=== PATIENT | female | born 1990 | race Hispanic/Latino ===

== ENCOUNTER 2017-11-13 13:25 | Emergency (ER) | payer OTHER ==
[2017-11-13] MEDS ORDERED: Sodium Chloride 0.9% 1,000 ML IV STA (14:02)
[2017-11-13 14:17] LABS: BASO # 0.1 K/uL (0.0-0.2); BASO % 1.2 % (0.0-2.0); EOS # 0.1 K/uL (0.0-0.7); EOS % 1.6 % (0.0-4.0); HEMOGLOBIN 14.2 g/dL (12.0-16.0); LYMPH # 2.2 K/uL (1.0-4.3); LYMPH % 23.5 % (20.0-40.0); MEAN CELL VOLUME 92.7 fl (81.0-99.0); MEAN CORPUSCULAR HEMOGLOBIN 31.8 pg (27.0-31.0); MEAN CORPUSCULAR HGB CONC 34.3 g/dL (33.0-37.0); MONO # 0.5 K/uL (0.0-0.8); MONO % 5.8 % (0.0-10.0); NEUT # 6.3 K/uL (1.8-7.0); NEUT % 67.9 % (50.0-75.0); NRBC % 0.1 % (0.0-0.0); RBC 4.47 Mil/uL (3.80-5.20); RED CELL DISTRIBUTION WIDTH 12.4 % (11.5-14.5); WHITE BLOOD COUNT 9.3 K/uL (4.8-10.8)
--- NOTE | 2017-11-13 14:17 | ED PDOC ---
HPI: Abdomen Time Seen by Provider: 11/13/17 13:43 Chief Complaint (Nursing): Abdominal Pain Chief Complaint (Provider): Abdominal Pain History Per: Patient History/Exam Limitations: no limitations Onset/Duration Of Symptoms: Days (x5) Current Symptoms Are (Timing): Still Present Additional Complaint(s): 27 y/o female presents to the ED complaining of right sided pelvic pain that has been progressively worsening since Wednesday. Patient states pain is associated with vaginal spotting starting 2-3 days before onset of pain. Patient reports that last month she had an IUD placed by Dr. Murray. Denies fever, nausea, vomiting, diarrhea, dysuria, previous abdominal surgery and previous gynecological surgery. PMD: Non [facility] Provider Past Medical History Reviewed: Historical Data, Nursing Documentation, Vital Signs Vital Signs: Last Vital Signs Temp 97 F L 11/13/17 17:51 Pulse 78 11/13/17 17:51 Resp 19 11/13/17 17:51 BP 128/76 11/13/17 17:51 Pulse Ox 98 11/13/17 17:51 - Medical History PMH: No Chronic Diseases - Surgical History Surgical History: Tonsillectomy - Family History Family History: States: Unknown Family Hx - Allergies Allergies/Adverse Reactions: Allergies Allergy/AdvReac Type Severity Reaction Status Date / Time No Known Allergies Allergy Verified 11/13/17 13:37 Review of Systems ROS Statement: Except As Marked, All Systems Reviewed And Found Negative Constitutional: Negative for: Fever Gastrointestinal: Negative for: Nausea, Vomiting, Diarrhea Genitourinary Female: Positive for: Vaginal Bleeding, Pelvic Pain. Negative for : Dysuria Physical Exam - Reviewed Nursing Documentation Reviewed: Yes Vital Signs Reviewed: Yes - Physical Exam Appears: Positive for: No Acute Distress Cardiovascular/Chest: Positive for: Regular Rate, Rhythm. Negative for: Murmur Respiratory: Positive for: Normal Breath Sounds. Negative for: Respiratory Distress Gastrointestinal/Abdominal: Positive for: Normal Exam, Soft. Negative for: Tenderness Pelvic Exam: Positive for: External Exam Normal Neurologic/Psych: Positive for: Alert, Oriented (x3). Negative for: Motor/ Sensory Deficits - Laboratory Results Result Diagrams: 11/13/17 14:11 11/13/17 14:11 Urine POC: Negative - ECG O2 Sat by Pulse Oximetry: 100 (RA) Pulse Ox Interpretation: Normal Medical Decision Making Medical Decision Making: Time: 1411 Plan: -- Type and Screen -- CMP -- NPO Diet -- ED Urine -- CBC with differentials -- Sodium Chloride IV 200 mls/hr -- Toradol 30 mg IVP -- IV Insertion -- Urinalysis -- Transvaginal US 1530 On re-evaluation, pt. informed of lab results. Reports good relief of pain. 1600 TVUS: Complex cyst in the left adnexal region with mild free fluid. Questionable position of IUD may be low in position in the lower uterine segment. Case d/w Dr. Velásquez, OBGYN [employer], and states pt. must be informed that she can get with a malposition IUD and that she will have to f/u with her OBGYN for removal. Also states pt. does not require face to face evaluation by him at this time. Pt. informed of plan and agrees with care. Requesting referral for new OBGYN. __ Scribe Attestation: Documented by Joce Caraballo, acting as a scribe for Fernando Sher PA-C. Provider Scribe Attestation: All medical record entries made by the Scribe were at my direction and personally dictated by me. I have reviewed the chart and agree that the record accurately reflects my personal performance of the history, physical exam, medical decision making, and the department course for this patient. I have also personally directed, reviewed, and agree with the discharge instructions and disposition. Disposition - Clinical Impression Clinical Impression: Malpositioned IUD - Patient ED Disposition Is Patient to be Admitted: No - Disposition Referrals: [facility]Outside[facility] [Outside[facility] Disposition: Routine/Home Disposition Time: 17:22 Condition: IMPROVED Additional Instructions: PRICILA WHITFIELD, thank you for letting us take care of you today. Your provider was Luis F Roblero MD and you were treated for ABD PAIN. The emergency medical care you received today was directed at your acute symptoms. If you were prescribed any medication, please fill it and take as directed. It may take several days for your symptoms to resolve. Return to the Emergency Department if your symptoms worsen, do not improve, or if you have any other problems. Please contact your doctor or call one of the physicians/clinics you have been referred to that are listed on the Patient Visit Information form that is included in your discharge packet. Bring any paperwork you were given at discharge with you along with any medications you are taking to your follow up visit. Our treatment cannot replace ongoing medical care by a primary care provider outside of the emergency department. Thank you for allowing the [facility] team to be part of your care today. If you had an X-Ray or CT scan: A Radiologist will review the ED reading if any change in treatment is needed we will contact you. If you had a blood, urine, or wound culture: It will take several days for the results, if any change in treatment is needed we will contact you. If you had an STI test: It will take 48 hours for the results. Please call after 1 week if you have not heard back. Instructions: Intrauterine Devices (IUD) Forms: [employer] ([place]ronesian)
[2017-11-13 14:20] LABS: SQUAMOUS EPITHIAL < 1 /hpf (0-5); URINE BACTERIA RARE (<OCC); URINE BILIRUBIN NEGATIVE (NEGATIVE); URINE BLOOD NEGATIVE (NEGATIVE); URINE CLARITY SLIGHTY-CLOUDY (Clear); URINE COLOR YELLOW (YELLOW); URINE GLUCOSE (UA) NEG (Normal); URINE LEUKOCYTE ESTERASE NEG Leu/uL (Negative); URINE PROTEIN NEGATIVE (NEGATIVE); URINE UROBILINOGEN 0.2-1.0 mg/dL (0.2-1.0)
[2017-11-13 14:34] LABS: ALB/GLOB RATIO 1.3 (1.0-2.1); ALBUMIN 4.4 g/dL (3.5-5.0); ALT/SGPT 24 U/L (9-52); AST/SGOT 30 U/L (14-36); BLOOD UREA NITROGEN 15 mg/dl (7-17); CALCIUM 9.4 mg/dL (8.4-10.2); GFR AFRICAN-AMERICAN > 60; GFR NON-AFRICAN AMERICAN > 60
[2017-11-13 17:52] VITALS: BP 128/76; PULSE 78; RESP 19; TEMP 97
[2017-11-13 18:44] VITALS: O2SAT 100
--- NOTE | 2017-11-14 11:37 | US ---
Date of service: 11/13/2017 PROCEDURE: HISTORY: pelvic pain; vaginal spotting COMPARISON: TECHNIQUE: FINDINGS: The uterus is normal in size. There is an intrauterine device in place with low position possibly in the lower uterine segment. The right ovary is normal. The left ovary measures 4.9 x 3.5 centimeters and contains a complex 3.5 centimeter cyst. There is no free fluid the pelvis. IMPRESSION: Questionable position of intrauterine device may be low in position in the lower uterine segment. Complex left ovarian cyst
== END 2017-11-13 17:54 | disposition home or self-care (01) ==
LOC: H.ER 13:25
DX: T83.32XA Displacement of intrauterine contraceptive device, initial encounter (principal)
CPT/HCPCS: 76830; 80053; 81003; 81025; 85025; 86850; 86900; 96374; 99283; J1885; J7030